=== PATIENT | male | born 1985 | race Caucasian/White ===

== ENCOUNTER 2025-05-12 10:05 | Emergency (ER) | payer OTHER, SELFPAY ==
[2025-05-12 10:19] VITALS: BP 152/93
--- NOTE | 2025-05-12 10:50 | ED.MUSCINJ ---
HPI-Injury
General
Chief Complaint: Musculo-Skeletal Complaint
Source: patient
Exam Limitations: none
Time Seen by Provider: 05/12/25 10:37
History of Present Illness-Injury
Initial Injury comments:
39-year-old [id number] male presents complaining of right shoulder pain starting last evening. He bowled a round of bowling. He had pain while bowling and continued to bowl. He woke up this morning with recent pain down the right
shoulder and into the right wrist. No prior injury to the shoulder. He is typically not physically active this was out of the ordinary for him. No other complaints at this
Phy Exam
Physical Exam
Physical Exam:
General: Well-appearing male no acute respiratory distress
HEENT normocephalic atraumatic
Musculoskeletal exam: Right shoulder slightly tender over the anterior lateral aspect of the shoulder decreased active and passive range of motion. Increased pain with resisted external rotation. The right wrist is slightly tender without deformity
Skin is intact without rash
Vascular 2+ radial pulse right wrist
Injury Course
Orders/Labs/Results
Orders:
Orders
05/12/25 10:50
Sling Right-Treatment ONCE
MDM/Problems Addressed
Differential Diagnosis Includes:
Right shoulder pain no trauma other than bowling yesterday. Suspect strain possibly of the rotator cuff or bursitis. No findings to suggest fracture or dislocation. X-rays not indicated. Recommend sling rest anti-inflammatories and follow-up
*Pulse Oximetry
SaO2: 98
Oxygen Mode of Delivery: Room air
*Critical Care Note
Total Time (30-74mins, 75-104mins- exclusive of procedures): Not Applicable
ED Attending Note
-
Portions of this chart may have been created with voice recognition software.� Occasional wrong word or��sound alike� substitutions may have occurred due to the inherent limitations of voice recognition software.
Discharge Plan
Departure
Patient Disposition: Home (Routine Discharge)
Date of Disposition: 05/12/25
Time of Disposition: 10:51
Patient with high blood pressure during this ER visit?: No
Discharge Problem:
Muscle strain, shoulder region
Instructions: Muscle and Bone Pain (DC)
Activity Restrictions/Additional Instructions:
Continue with ibuprofen or Tylenol for pain. Use a sling for support. Return if worse otherwise follow-up with your doctor for further evaluation
Interventions
Interventions:
*Risk Screen - Suicide Last Done: 05/12/25 10:19
*General Assessment Last Done: 05/12/25 10:19
*Neglect/Abuse Screening Last Done: 05/12/25 10:19
Discharge Date and Time
Print Language: CONGOLESE
== END 2025-05-12 11:09 | disposition home or self-care (01) ==
LOC: EMR 10:05
PROVIDERS: EMERGENCY PHYSICIAN Emergency Medicine
DX: S46.911A Strain of unspecified muscle, fascia and tendon at shoulder and upper arm level, right arm, initial encounter (principal); X50.3XXA Overexertion from repetitive movements, initial encounter
CPT/HCPCS: 99282